=== PATIENT | female | born 1995 | race Caucasian/White ===

== ENCOUNTER 2017-06-15 11:25 | Emergency (ER) | payer OTHER ==
[~2017-06-15] VITALS: Ht 154.9 cm; Wt 44.9 kg
[2017-06-15] MEDS ORDERED: BENZ100A PO (13:34)
[2017-06-15] MEDS ORDERED: AZIT250 PO (13:34)
[2017-06-15] MEDS ORDERED: METPRE4DP PO (13:34)
== END 2017-06-15 13:38 | disposition home or self-care (01) ==
LOC: ER 11:25
DX: J18.9 Pneumonia, unspecified organism (principal); J45.909 Unspecified asthma, uncomplicated; F17.200 Nicotine dependence, unspecified, uncomplicated
CPT/HCPCS: 71046; 94640; 99284